=== PATIENT | male | born 1950 | race Two or more races ===

== ENCOUNTER 2018-04-04 20:45 | Emergency (ER) | payer OTHER, MEDICARE ==
[~2018-04-04] VITALS: Ht 165.1 cm; Wt 75.0 kg
[2018-04-05 00:09] VITALS: BP 154/73
== END 2018-04-05 00:08 | DRG 563 ==
LOC: ED 20:45
PROC: 2W3NX1Z Immobilization of Right Upper Leg using Splint (ICD-10-PCS; principal; 2018-04-04)
DX: S82.141A Displaced bicondylar fracture of right tibia, initial encounter for closed fracture (principal); V59.49XA Driver of pick-up truck or van injured in collision with other motor vehicles in traffic accident, initial encounter; Y92.414 Local residential or business street as the place of occurrence of the external cause